=== PATIENT | male | born 1965 | race African-American/Black ===

== ENCOUNTER 2019-01-16 06:52 | Day surgery (SDC) | payer OTHER ==
[~2019-01-16] VITALS: Ht 180.3 cm; Wt 136.9 kg
[~2019-01-16 06:52] MED LIST: BP MED
[2019-01-16 07:52] VITALS: Ht 180.3 cm; Wt 136.9 kg
[2019-01-16 08:11] VITALS: BP 149/102; PULSE 72; RESP 16
--- NOTE | 2019-01-16 08:15 | PREAC ---
Date/Time of Note Date/Time of Note DATE: 01/16/19 TIME: 08:14 Anesthesia Eval and Record Evaluation Time Pre-Procedure Interview DATE: 01/16/19 TIME: 08:14 Age 53 Sex male NPO: 8 hrs Preoperative diagnosis screening Planned procedure colonoscopy Past Medical History Past Medical History: Includes Cardio: HTN GI: Morbid obesity Surgery & Anesthesia Issues No known issue Meds Anticoagulation: No Beta Kam within 24 hr: No Reason Beta Kam not given: Pt. not on B-Kam Meds reviewed: Yes Allergies Coded Allergies: No Known Allergy (Unverified , 01/16/19) Allergies Reviewed: Yes Labs/Studies Labs Reviewed: Reviewed by anesthesiologist test: N/A Pre-procedure Exam Airway: Adequate mouth opening, Adequate thyromental dist Mallampati: Mallampati II Teeth: Normal Lung: Normal Heart: Normal ASA Physical Status ASA physical status: 2 Emergency: None Planned Anesthetic General/MAC: MAC Pre-operative Attestations Prior to commencing anesthesia and surgery, the patient was re-evaluated, there was verification of: *The patient's identity *The results of appropriate recent lab work and preoperative vital signs *The above evaluation not changing prior to induction *Anesthetic plan, risk benefits, alternative and complications discussed with patient/family; questions answered; patient/family understands, accepts and wishes to proceed. JANETT CUELLAR Jan 16, 2019 08:15
[2019-01-16] MEDS ORDERED: LIDOCAINE 2% (SDV) 5 ML INJ ONE (08:30)
[2019-01-16] MEDS ORDERED: PROPOFOL 200 MG INJ ONE (08:30)
[2019-01-16] MEDS ORDERED: PROPOFOL 80 ML ONE (08:31)
--- NOTE | 2019-01-16 09:37 | PAC ---
Date/Time of Note Date/Time of Note DATE: 01/16/19 TIME: 09:37 Post-Anesthesia Notes Post-Anesthesia Note Last documented vital signs Vital Signs Date Temp Pulse Resp B/P (MAP) Pulse Ox O2 O2 Flow FiO2 Time Delivery Rate 01/16/19 98.1 98 72 77 16 16 149/102 98 99 Room 08:11 093 (118 131 Air face mask 6L Activity: WNL Respiratory function: WNL Cardiovascular function: WNL Mental status: Baseline Pain reasonably controlled: Yes Hydration appropriate: Yes Nausea/Vomiting absent: Yes JANETT CUELLAR Jan 16, 2019 09:37
[2019-01-16 10:35] VITALS: BP 171/108; RESP 20
== END 2019-01-16 10:57 | disposition home or self-care (01) ==
LOC: GIL 06:52
PROVIDERS: ATTEND Internal Medicine Gastroenterology
DX: Z12.11 Encounter for screening for malignant neoplasm of colon (principal); D12.3 Benign neoplasm of transverse colon; K64.8 Other hemorrhoids
CPT/HCPCS: 45385; 88305; Z7610